=== PATIENT | male | born 1950 | race Caucasian/White ===

== ENCOUNTER 2021-02-21 13:23 | Inpatient (IN) ==
[2021-02-21 14:33] LABS: Basophils # (auto) 0.02 K/uL (0-0.2); Basophils % (auto) 0.3 %; Eosinophils # (auto) 0.16 K/uL (0-0.5); Eosinophils % (auto) 2.4 %; Hematocrit (blood only) 40.3 % (42-52); Hemoglobin 13.9 g/dL (14.0-18.0); Immature Granulocytes # (auto) 0.02 K/uL (0.00-0.02); Immature Granulocytes % (auto) 0.3 %; Lymphocytes # (auto) 1.51 K/uL (1.2-3.4); Lymphocytes % (auto) 22.6 %; Mean Corpuscular Hemoglobin 32.3 pg (25-34); Mean Corpuscular Hgb Conc 34.5 g/dL (32-36); Mean Corpuscular Volume 93.7 fL (80-100); Mean Platelet Volume 8.9 fL (7.4-10.4); Monocytes # (auto) 0.52 K/uL (0.11-0.59); Monocytes % (auto) 7.8 %; Neutrophils # (auto) 4.45 K/uL (1.4-6.5); Neutrophils % (auto) 66.6 %; Platelet Count 280 K/uL (130-400); RDW Coefficient of Variation 12.7 % (11.5-14.5); RDW Standard Deviation 43.7 fL (36.4-46.3); White Blood Count 6.68 K/uL (4.8-10.8)
[2021-02-21 14:50] LABS: Albumin Level 3.8 gm/dl (3.4-5.0); BUN Creatinine Ratio 22.1 (10-20); Calcium 9.9 mg/dl (8.5-10.1); Est GFR (African American) 97.4; Est GFR (Non-African American) 84.1; Potassium 4.9 mmol/L (3.5-5.1)
[2021-02-21 15:01] LABS: Bilirubin,Total 0.5 mg/dl (0.2-1); Globulin 3.8 gm/dl (2.5-4.0); Thyroid Stimulating Hormone 0.887 uIu/ml (0.300-4.500); Total Protein 7.6 gm/dl (6.4-8.2)
[2021-02-21 15:02] LABS: Acetaminophen < 2 ug/ml (10-30); Salicylate < 1.7 mg/dl (2.8-20)
[2021-02-21 15:58] LABS: Appearance Urine Clear (Clear); Bilirubin Urine Negative (Negative); Blood Urine Negative (Negative); Color Urine Yellow; Glucose Urine UA Negative (Negative); Ketones Urine Negative (Negative); Leukocyte Esterase Urine Negative (Negative); Nitrite Urine Negative (Negative); Protein Urine Negative (Negative); Specific Gravity Urine 1.019 (1.000-1.030); Urobilinogen Urine Negative (Negative); pH Urine 6.5 (4.5-7.5)
[2021-02-21 16:27] LABS: Amphetamines+Metham, Urine Neg (Neg); Barbiturates, Urine Neg (Neg); Benzodiazepine, Urine Neg (Neg); Cocaine, Urine Neg (Neg); MDMA (Ecstacy), Urine Neg (Neg); Methadone, Urine Neg (Neg); Opiate, Urine Neg (Neg); Phencyclidine, Urine Neg (Neg)
--- NOTE | 2021-02-21 19:15 | Emergency Department Note ---
History of Present Illness General Chief complaint: Mental Health Evaluation Stated complaint: CANT SLEEP,SHAKING,CRYING Time Seen by Provider: 02/21/21 14:06 History of Present Illness Provider complaint: Mental health evaluation Onset (ago): month(s) 2 Maximum Pain Intensity: 0 70-year-old male presents emergency department for mental health evaluation. Patient states over the last 2 months since his shoulder surgery he has been feeling increasingly depressed. He states he has been crying a lot and has had decreased appetite. Patient states he has been trying to work with his outpatient psychiatrist to help his symptoms and they have recently made changes to his medications and dosages including changing the dose of his Paxil and adding bupropion and Zoloft. He states no matter what he still feels anxious and depressed. Patient denies suicidal or homicidal ideation. Patient does report that he is so anxious he cannot stop shaking. Patient denies any alcohol use. No drug use. Home Medications Medication Instructions Recorded Confirmed Type Foltanx RF 1 tab PO DAILY 02/10/21 02/21/21 History ascorbic acid (vitamin C) [Vitamin 1,000 mg PO DAILY 02/10/21 02/21/21 History C] aspirin [Aspirin Low-Strength] 81 mg PO DAILY 02/10/21 02/21/21 History atorvastatin 20 mg PO DAILY 02/10/21 02/21/21 History dicyclomine [Bentyl] 20 mg PO TID PRN 02/10/21 02/21/21 History lamotrigine [Lamictal] 150 mg PO DAILY 02/10/21 02/21/21 History lisinopril 5 mg PO DAILY 02/10/21 02/21/21 History lithium carbonate 600 mg PO DAILY 02/10/21 02/21/21 History lorazepam [Ativan] 0.5 mg PO Q12H PRN #14 tab 02/10/21 02/21/21 Rx pantoprazole [Protonix] 40 mg PO BID 02/10/21 02/21/21 History paroxetine HCl [Paxil] 20 mg PO DAILY 02/10/21 02/21/21 History quetiapine [Seroquel] 300 mg PO HS 02/10/21 02/21/21 History hydroxyzine HCl 25 mg PO DIRECTED PRN 02/21/21 02/21/21 History Allergies Allergy/AdvReac Type Severity Reaction Status Date / Time Penicillins Allergy Unknown Unknown Verified 02/21/21 17:16 adhesive tape AdvReac Mild Rash Verified 02/21/21 17:16 iodine AdvReac Mild Rash Verified 02/21/21 17:16 Tetracyclines AdvReac Mild Rash Verified 02/21/21 17:16 Past Med/Surg History Medical History Anxiety Depression Surgical History History of shoulder surgery Social History Smoking Status: Never smoker Hx Alcohol Use: Yes Hx Substance Use: Yes Preferred Language: Tajik Feels Safe at Home: Yes Review of Systems A total of 10 systems reviewed and were otherwise negative Physical Exam Vital Signs Vital Signs - 24 hr 02/21/21 13:27 02/21/21 18:27 02/21/21 21:45 Temperature 36.7 C Temperature Source Temporal Artery Scan Pulse Rate 98 H Pulse Rate [Finger] 82 81 Respiratory Rate 18 18 16 Respiratory Effort / Characteristics Non-Labored Non-Labored Spontaneous Respiratory Depth Normal Normal Respiratory Pattern Regular Blood Pressure 154/77 H Blood Pressure [Left Arm] 139/83 127/74 Blood Pressure Mean 102 Blood Pressure Mean [Left Arm] 101 91 Blood Pressure Position [Left Arm] Sitting Pulse Oximetry 96 98 Oxygen Delivery Method Room Air Room Air Sepsis Recent Fever Within 48 Hours No Sepsis New/Unexplained Change in Mental Status No Sepsis Action Taken by Nursing No Action Required Physical Exam GENERAL: He is oriented to person, place, and time. He appears well-developed and well-nourished. He does not appear distressed. Patient has generalized tremor. HENT: Exam performed. - Head: Normocephalic and atraumatic. - Right Ear: External ear normal. No mastoid tenderness. - Left Ear: External ear normal. No mastoid tenderness. - Mouth/Throat: The oropharynx is clear and moist. No trismus in the jaw. No dental abscesses or uvula swelling. No oropharyngeal exudate or tonsillar abscesses. EYES: Conjunctivae and EOM are normal. Pupils are equal, round, and reactive to light. Right eye exhibits no discharge. Left eye exhibits no discharge. No scleral icterus. NECK: Normal range of motion. Neck supple. No JVD present. No spinous process tenderness present. No carotid bruit present. No rigidity. No tracheal deviation and normal range of motion present. No Brudzinski's sign and no Kernig's sign noted. CV: Normal rate, regular rhythm, normal heart sounds and intact distal pulses. There is no peripheral edema. Palpable radial pulses bue. PULM/CHEST: Effort normal and breath sounds normal. No respiratory distress. No stridor. He has no wheezes. He has no rales. - Chest Wall: He exhibits no tenderness. ABD: The abdomen is soft. Bowel sounds are normal. He has no distension. No mass is present. There is no tenderness. There is no rebound, no guarding, no Monreal's sign and no tenderness at McBurney's point. Rovsig negative. MUSC/SKEL: Normal range of motion. There is no peripheral edema, tenderness or deformity. LYMPH: No cervical adenopathy. NEURO: He is alert and oriented to person, place, and time. He has normal strength. No cranial nerve deficit or sensory deficit. Coordination and gait normal. GCS eye subscore is 4. GCS verbal subscore is 5. GCS motor subscore is 6. Cerebellar tests wnl. SKIN: Skin is warm and dry. He is not diaphoretic. PSYCH: Patient appears anxious and is has generalized tremor. No suicidal or homicidal ideation. Course Course 1406: The patient was evaluated in room A6. A complete history and physical exam was performed 1740: Patient medically cleared. Patient placed in observation at this time. 2155: Patient accepted to 3 S. Medical Decision Making Laboratory Data Result diagrams: 02/21/21 14:17 02/21/21 14:17 Lab Results 02/21/21 02/21/21 02/21/21 Range/Units 14:17 14:17 14:17 WBC 6.68 (4.8-10.8) K/uL RBC 4.30 L (4.7-6.1) M/uL Hgb 13.9 L (14.0-18.0) g/dL Hct 40.3 L (42-52) % MCV 93.7 (80-100) fL MCH 32.3 (25-34) pg MCHC 34.5 (32-36) g/dL RDW Std Deviation 43.7 (36.4-46.3) fL RDW Coeff of Krysten 12.7 (11.5-14.5) % Plt Count 280 (130-400) K/uL MPV 8.9 (7.4-10.4) fL Immature Gran % (Auto) 0.3 % Neut % (Auto) 66.6 % Lymph % (Auto) 22.6 % [place] % (Auto) 7.8 % Eos % (Auto) 2.4 % Baso % (Auto) 0.3 % Neut # (Auto) 4.45 (1.4-6.5) K/uL Lymph # (Auto) 1.51 (1.2-3.4) K/uL [place] # (Auto) 0.52 (0.11-0.59) K/uL Eos # (Auto) 0.16 (0-0.5) K/uL Baso # (Auto) 0.02 (0-0.2) K/uL Immature Gran # (Auto) 0.02 (0.00-0.02) K/uL Sodium 141 (136-145) mmol/L Potassium 4.9 (3.5-5.1) mmol/L Chloride 109 H (98-107) mmol/L Carbon Dioxide 30 (21-32) mmol/L Anion Gap 2.0 L (3-11) BUN 20 H (7-18) mg/dl Creatinine 0.93 (0.6-1.4) mg/dl Est Cr Clr Drug Dosing 76.0 ml/min Est GFR ( Amer) 97.4 Est GFR (Non-Af Amer) 84.1 BUN/Creatinine Ratio 22.1 H (10-20) Glucose 105 H (70-99) mg/dl Calcium 9.9 (8.5-10.1) mg/dl Total Bilirubin 0.5 (0.2-1) mg/dl AST 17 (15-37) U/L ALT 53 (12-78) U/L Alkaline Phosphatase 92 (45-117) U/L Total Protein 7.6 (6.4-8.2) gm/dl Albumin 3.8 (3.4-5.0) gm/dl Globulin 3.8 (2.5-4.0) gm/dl Albumin/Globulin Ratio 1.0 (0.9-2) TSH 0.887 (0.300-4.500) uIu/ml Urine Color Urine Appearance (Clear) Urine pH (4.5-7.5) Ur Specific [place] (1.000-1.030) Urine Protein (Negative) Urine Glucose (UA) (Negative) Urine Ketones (Negative) Urine Blood (Negative) Urine Nitrite (Negative) Urine Bilirubin (Negative) Urine Urobilinogen (Negative) Ur Leukocyte Esterase (Negative) Salicylates < 1.7 L (2.8-20) mg/dl Urine Opiates Screen (Neg) Ur Methadone, Qual (Neg) Acetaminophen < 2 L (10-30) ug/ml Urine Barbiturates (Neg) Ur Phencyclidine (PCP) (Neg) U Amphetamin/Meth Scrn (Neg) MDMA (Ecstasy) Screen (Neg) U Benzodiazepines Scrn (Neg) [place] (0.6-1.2) mmol/L Ur Cocaine Metabolite (Neg) U Marijuana (THC) Screen (Neg) Ethyl Alcohol mg/dL (0-3) mg/dl COVID-19 Eval Order SARS-CoV-2, RNA, NAAT (NEGATIVE) 02/21/21 02/21/21 02/21/21 Range/Units 14:17 15:30 15:30 WBC (4.8-10.8) K/uL RBC (4.7-6.1) M/uL Hgb (14.0-18.0) g/dL Hct (42-52) % MCV (80-100) fL MCH (25-34) pg MCHC (32-36) g/dL RDW Std Deviation (36.4-46.3) fL RDW Coeff of Krysten (11.5-14.5) % Plt Count (130-400) K/uL MPV (7.4-10.4) fL Immature Gran % (Auto) % Neut % (Auto) % Lymph % (Auto) % [place] % (Auto) % Eos % (Auto) % Baso % (Auto) % Neut # (Auto) (1.4-6.5) K/uL Lymph # (Auto) (1.2-3.4) K/uL [place] # (Auto) (0.11-0.59) K/uL Eos # (Auto) (0-0.5) K/uL Baso # (Auto) (0-0.2) K/uL Immature Gran # (Auto) (0.00-0.02) K/uL Sodium (136-145) mmol/L Potassium (3.5-5.1) mmol/L Chloride (98-107) mmol/L Carbon Dioxide (21-32) mmol/L Anion Gap (3-11) BUN (7-18) mg/dl Creatinine (0.6-1.4) mg/dl Est Cr Clr Drug Dosing ml/min Est GFR ( Amer) Est GFR (Non-Af Amer) BUN/Creatinine Ratio (10-20) Glucose (70-99) mg/dl Calcium (8.5-10.1) mg/dl Total Bilirubin (0.2-1) mg/dl AST (15-37) U/L ALT (12-78) U/L Alkaline Phosphatase (45-117) U/L Total Protein (6.4-8.2) gm/dl Albumin (3.4-5.0) gm/dl Globulin (2.5-4.0) gm/dl Albumin/Globulin Ratio (0.9-2) TSH (0.300-4.500) uIu/ml Urine Color Yellow Urine Appearance Clear (Clear) Urine pH 6.5 (4.5-7.5) Ur Specific [place] 1.019 (1.000-1.030) Urine Protein Negative (Negative) Urine Glucose (UA) Negative (Negative) Urine Ketones Negative (Negative) Urine Blood Negative (Negative) Urine Nitrite Negative (Negative) Urine Bilirubin Negative (Negative) Urine Urobilinogen Negative (Negative) Ur Leukocyte Esterase Negative (Negative) Salicylates (2.8-20) mg/dl Urine Opiates Screen Neg (Neg) Ur Methadone, Qual Neg (Neg) Acetaminophen (10-30) ug/ml Urine Barbiturates Neg (Neg) Ur Phencyclidine (PCP) Neg (Neg) U Amphetamin/Meth Scrn Neg (Neg) MDMA (Ecstasy) Screen Neg (Neg) U Benzodiazepines Scrn Neg (Neg) [place] (0.6-1.2) mmol/L Ur Cocaine Metabolite Neg (Neg) U Marijuana (THC) Screen Neg (Neg) Ethyl Alcohol mg/dL < 3.0 (0-3) mg/dl COVID-19 Eval Order SARS-CoV-2, RNA, NAAT (NEGATIVE) 04/27/21 04/27/21 04/27/21 Range/Units 17:40 17:40 19:58 WBC (4.8-10.8) K/uL RBC (4.7-6.1) M/uL Hgb (14.0-18.0) g/dL Hct (42-52) % MCV (80-100) fL MCH (25-34) pg MCHC (32-36) g/dL RDW Std Deviation (36.4-46.3) fL RDW Coeff of Krysten (11.5-14.5) % Plt Count (130-400) K/uL MPV (7.4-10.4) fL Immature Gran % (Auto) % Neut % (Auto) % Lymph % (Auto) % [place] % (Auto) % Eos % (Auto) % Baso % (Auto) % Neut # (Auto) (1.4-6.5) K/uL Lymph # (Auto) (1.2-3.4) K/uL [place] # (Auto) (0.11-0.59) K/uL Eos # (Auto) (0-0.5) K/uL Baso # (Auto) (0-0.2) K/uL Immature Gran # (Auto) (0.00-0.02) K/uL Sodium (136-145) mmol/L Potassium (3.5-5.1) mmol/L Chloride (98-107) mmol/L Carbon Dioxide (21-32) mmol/L Anion Gap (3-11) BUN (7-18) mg/dl Creatinine (0.6-1.4) mg/dl Est Cr Clr Drug Dosing ml/min Est GFR ( Amer) Est GFR (Non-Af Amer) BUN/Creatinine Ratio (10-20) Glucose (70-99) mg/dl Calcium (8.5-10.1) mg/dl Total Bilirubin (0.2-1) mg/dl AST (15-37) U/L ALT (12-78) U/L Alkaline Phosphatase (45-117) U/L Total Protein (6.4-8.2) gm/dl Albumin (3.4-5.0) gm/dl Globulin (2.5-4.0) gm/dl Albumin/Globulin Ratio (0.9-2) TSH (0.300-4.500) uIu/ml Urine Color Urine Appearance (Clear) Urine pH (4.5-7.5) Ur Specific [place] (1.000-1.030) Urine Protein (Negative) Urine Glucose (UA) (Negative) Urine Ketones (Negative) Urine Blood (Negative) Urine Nitrite (Negative) Urine Bilirubin (Negative) Urine Urobilinogen (Negative) Ur Leukocyte Esterase (Negative) Salicylates (2.8-20) mg/dl Urine Opiates Screen (Neg) Ur Methadone, Qual (Neg) Acetaminophen (10-30) ug/ml Urine Barbiturates (Neg) Ur Phencyclidine (PCP) (Neg) U Amphetamin/Meth Scrn (Neg) MDMA (Ecstasy) Screen (Neg) U Benzodiazepines Scrn (Neg) [place] 0.6 (0.6-1.2) mmol/L Ur Cocaine Metabolite (Neg) U Marijuana (THC) Screen (Neg) Ethyl Alcohol mg/dL (0-3) mg/dl COVID-19 Eval Order Covid19 [facility] SARS-CoV-2, RNA, NAAT NEGATIVE (NEGATIVE) MDM Narrative Observation note Indication: Psych eval/placement Patient, with anxiety and depression was first seen at 1406 hrs and the observation time began at 1740 hrs and was necessary in order to have psych evaluation completed . Upon re-evaluation, 4 hours and 16 minutes of observation revealed that the patient should be admitted to psych. Disposition date and time February 21, [id number]. Impression & Plan Acute anxiety Discharge Plan Visit Data Chief Complaint: Mental Health Evaluation Stated Complaint: CANT SLEEP,SHAKING,CRYING ED Provider: Arash Silvestre Discharge Problem: Acute anxiety Patient Disposition: Admitted As Inpatient Forms Stand Alone Forms: [facility], Suicide Prevention Resources Prescriptions Prescriptions: No Action lamotrigine [Lamictal] 150 mg Tablet 150 mg PO DAILY RF: 0 ascorbic acid (vitamin C) [Vitamin C] 1,000 mg Tablet 1,000 mg PO DAILY RF: 0 atorvastatin 20 mg Tablet 20 mg PO DAILY RF: 0 quetiapine [Seroquel] 300 mg Tablet 300 mg PO HS RF: 0 dicyclomine [Bentyl] 20 mg Tablet 20 mg PO TID PRN (Reason: ABD PAIN) RF: 0 lithium carbonate 600 mg Capsule 600 mg PO DAILY RF: 0 paroxetine HCl [Paxil] 20 mg Tablet 20 mg PO DAILY RF: 0 pantoprazole [Protonix] 40 mg Tablet,Delayed Release (Dr/Ec) 40 mg PO BID RF: 0 lisinopril 5 mg Tablet 5 mg PO DAILY RF: 0 Foltanx RF 1 tab PO DAILY RF: 0 aspirin [Aspirin Low-Strength] 81 mg Tablet,Chewable 81 mg PO DAILY RF: 0 lorazepam [Ativan] 0.5 mg tablet 0.5 mg PO Q12H PRN (Reason: anxiety) Qty: 14 RF: 0 hydroxyzine HCl 25 mg tablet 25 mg PO DIRECTED PRN (Reason: Anxiety) RF: 0 Referrals Referrals: Jeremy Hickman DO [Primary Care Provider] -
[2021-02-21] MEDS ORDERED: SODIUM CHLORIDE 0.65% NA SOLN 45 ML (OCEAN) PRN (21:45)
[2021-02-21] MEDS ORDERED: hydrOXYzine HCl 25 MG TAB PO PRN ×2 (21:45)
[2021-02-21] MEDS ORDERED: MAGNESIUM HYDROXIDE SUSP 30 ML UDC PO PRN (21:45)
[2021-02-21] MEDS ORDERED: BISMUTH SUBSALICYLATE LIQD 236 ML PO PRN (21:45)
[2021-02-21] MEDS ORDERED: ALUMINUM/MAGNESIUM SUSP 30 ML UDC PO PRN (21:45)
[2021-02-21] MEDS ORDERED: ACETAMINOPHEN 325 MG TAB PO PRN (21:45)
[2021-02-21] MEDS ORDERED: QUEtiapine FUMARATE 25 MG TABLET PO ONE (22:21)
[2021-02-21] MEDS ORDERED: LORazepam 1 MG TAB PO STA (22:22)
--- NOTE | 2021-02-22 08:14 | History & Physical ---
Date of Service February 22, 2021 Impression / Recommendations Impression 70-year-old male with a history of bipolar disorder who presents with worsening depression and anxiety and poor response to multiple medications. He was just started on sertraline, which we will continue to titrate. He has been unable to eat or sleep, and lost 13 pounds in the last few weeks. Inpatient treatment is medically necessary due to the severity of symptoms and inability to care for himself outside of the hospital. (1) Anxiety: 02/22 -patient is extremely anxious, shaky and distraught. He reports poor response to hydroxyzine, but has been taking Ativan with some benefit. Will offer 1 mg 3 times daily as needed here. Also ordered propanolol 10 mg twice daily as needed for anxiety/tremor. -Continue to titrate sertraline, increasing to 100 mg daily today. -Encourage group attendance and participation, work on healthy coping skills and discharge safety plan. -Coordinate with outpatient psychiatrist, Dr. Mendoza at [facility], and refer for outpatient psychotherapy. -Family meeting. (2) Bipolar 1 disorder: 02/22 -continue lithium, lamotrigine, and quetiapine. Discussed options of increasing either lithium or quetiapine, as he has been on higher doses of both in the past and this may benefit mood, sleep, and anxiety. We will reserve this option in case he is not improving with titration of the SSRI as above. Risk Factors Assessment Male: Yes : Yes Do You Have Access To A Gun?: Yes (locked up) Health Problems: Yes Mental Health Diagnoses: Yes Substance Use Disorders: No Previous Attempt: No Previous Psychiatric Hospitalization: Yes Hopelessness: Yes Smoker: No Protective Factors Assessment Mormon Beliefs: No : No Responsible for Young Children: No Employed: No Stable Relationships: Yes Supportive Family: Yes Psychiatric History Identifying Data EDMUND DAUGHERTY is a 70-year-old M who currently lives in [place], has a history of bipolar disorder versus depression and anxiety, and was admitted on 02/21/21 21:45 on a 201 voluntary commitment for severe depression with inability to care for himself. Chief Complaint "Her pills just, tried something, didn't work". History of Present Illness Patient was sent into the ER by his outpatient psychiatrist, Dr. Mendoza at [facility], for severe depression and anxiety and inability to care for himself. He previously been in treatment with Dr. Prado for several decades and has been diagnosed with bipolar disorder. Records from his psychiatry visit yesterday indicate he presented with his [id number], had been crying most of the day, was hopeless, and did not think he would ever get better. He had not been sleeping, had no energy, was isolating, and not eating, losing 13 pounds in 3 weeks. He endorsed anxiety, and was very shaky. He had been started on sertraline and just increased the dose to 50 mg yesterday. He did not feel able to care for himself, stating he could not wait for the medication to work and was "not going to make it." His [id number] agreed to take him to the hospital for inpatient treatment. He had been seen in the ER 02/10/2021 for anxiety and was given a prescription for lorazepam 0.5 mg as needed, which he took a couple of times with good effect. At that time his paroxetine was being titrated, but after that visit he was switched to sertraline. Yesterday in the ER, EKG was normal sinus rhythm with QTC 414, labs notable for low RBC, hemoglobin, and hematocrit; BUN of 20, chloride 109, glucose 105, normal LFTs and TSH 0.887; UA and UDS negative. He was admitted voluntarily and continued on his home medications including hydroxyzine 25-50 mg 3 times daily as needed anxiety, sertraline 50 mg daily, lamotrigine 150 mg daily at noon, lithium 600 mg at noon, and quetiapine 300 mg at bedtime. On my assessment today, he states mood and anxiety have been worsening since a shoulder injury last December after he fell off a backhoe, and wasn't able to have surgery due to pandemic until Oct., with ongoing pain and need for PT. He became more anxious last month and has had with several medications trials (first bupropion which made him more anxious, then paroxetine which also made him feel worse, and started sertraline about 4 days ago). He has been on stable doses of Seroquel, lamotrigine and lithium for years. He has felt so anxious he could not eat, was "crying 20/05," and could not function despite good family support. He denies wanting to hurt himself or anyone else, "I love my family and I love my life, I just want to get better." Sleep is "off and on," some nights can't sleep but others sleeps well, thinks Seroquel helps. Has been on up to 400mg of Seroquel in the past, but the dose was reduced as he "felt like a zombie." He thinks his last manic episode was in 2006 when his from cancer, and he was hospitalized at [facility], had a very bad experience. He repeatedly asked if we would get him better, and if he would be better by the time he left. He is particularly concerned about the crying and "shakes." He would like a new psychiatrist, as he feels Dr. Prado knew just what medications to give him and he is frustrated that his recent medication changes haven't been working, and is also interested in therapy. Past Psychiatric History Current Psychiatric Diagnosis: Bipolar I depressed (per [facility] records), vs MDD Outpatient Services: Psychiatrist Dr. Mendoza at [facility], previously saw Dr. Prado for about 30 years He has never had therapy but is interested in starting. Previous Psych Admissions: [facility] about 15 years ago Do You Have Access To A Gun?: Yes (locked up) History of Previous Suicide Attempt: No Past Medication Trials: Paroxetine Wellbutirn - increased anxiety Depakote - did not work hydroxyzine - ineffective for anxiety Allergies Allergy/AdvReac Type Severity Reaction Status Date / Time Penicillins Allergy Unknown Unknown Verified 02/21/21 17:16 adhesive tape AdvReac Mild Rash Verified 02/21/21 17:16 iodine AdvReac Mild Rash Verified 02/21/21 17:16 Tetracyclines AdvReac Mild Rash Verified 02/21/21 17:16 Home Medications Medication Instructions Recorded Confirmed Type Foltanx RF 1 tab PO DAILY 02/10/21 02/21/21 History ascorbic acid (vitamin C) [Vitamin 1,000 mg PO DAILY 02/10/21 02/21/21 History C] aspirin [Aspirin Low-Strength] 81 mg PO DAILY 02/10/21 02/21/21 History atorvastatin 20 mg PO DAILY 02/10/21 02/21/21 History dicyclomine [Bentyl] 20 mg PO TID PRN 02/10/21 02/21/21 History lamotrigine [Lamictal] 150 mg PO DAILY 02/10/21 02/21/21 History lisinopril 5 mg PO DAILY 02/10/21 02/21/21 History lithium carbonate 600 mg PO DAILY 02/10/21 02/21/21 History lorazepam [Ativan] 0.5 mg PO Q12H PRN #14 tab 02/10/21 02/21/21 Rx pantoprazole [Protonix] 40 mg PO BID 02/10/21 02/21/21 History quetiapine [Seroquel] 300 mg PO HS 02/10/21 02/21/21 History hydroxyzine HCl 25 mg PO BID PRN 02/21/21 02/22/21 History sertraline [Zoloft] 50 mg PO DAILY 02/22/21 02/22/21 History Family History Family History of: Doesn't Know Alcohol History Hx of Alcohol Use Over the Past 12 Months: No AUDIT Total Score: 0 Smoking Use tobacco type: cigarettes Smoking Status: Never smoker Substance History Hx of Prescription Med Misuse Over the Past 12 Months: No Hx of Over the Counter Med Misuse Over the Past 12 Months: No Hx of Inhalent Misuse Over the Past 12 Months: No Hx of Organic Substance Use Over the Past 12 Months: No Hx of Illegal Substances/Street Drug Use Over Past 12 Months: No Problems as a Result of Past Substance Use: None Identified Personal History Living Arrangements: Home Living Arrangements Comments: alone, but multiple family members live nearby. Has a girlfriend in [place] whom he sees on weekends Childhood: Grew up in [facility]. Has 1 older brother, other brother at age 67 of heart disease Highest Grade Completed: High School Graduate Employment Status: Self-Employed (has [employer] business, has not worked since last spring) Marital Status: Number Of Children: 1 daughter, 1 grandson Beliefs That Will Affect Care: None and Mormon Current Legal Problems: No Hx Legal Problems: No Hx Traumatic Life Events: No Patient History Medical History (Updated 02/22/21 @ 10:38 by Tanisha Mai MD) Anxiety Bipolar 1 disorder Surgical History History of shoulder surgery Social History Smoking Status: Never smoker Hx Alcohol Use: Yes Hx Substance Use: Yes Preferred Language: Montserratian Communication Ability: Effective Beliefs That Will Affect Care: None and Mormon Feels Safe at Home: Yes Review of Systems Review of Systems: All systems reviewed & are unremarkable except as noted in HPI & below UE shaking started about 3 weeks ago with high anxiety Physical Exam Psychiatric: Orientation: alert and cooperative Apperance: appropriately dressed, appropriately groomed and appeared stated age b/l UE tattoos, well groomed Eye Contact: + fair eye contact Motor Behavior: steady gait and station and no abnormal motor movements Speech: normal rate/rhythm/volume of speech Affect: + depressed affect, + anxious affect and mood congruent with affect Mood: + depressed mood and + anxious mood Thought Process: goal directed thought process Thought Content: reality based without delusions Suicidal Thoughts: denies suicidal thoughts Homicidal Thoughts: denies homicidal thoughts Hallucinations: no auditory hallucinations and no visual hallucinations Cognition: recent memory grossly intact, attention grossly intact and language grossly intact Insight: + fair insight Judgement: + fair judgement Vital Signs (Past 24 Hours): Last Vital Signs Temp 36.6 C 02/22/21 06:53 Pulse 80 02/22/21 06:54 Resp 16 02/22/21 06:53 BP 116/77 02/22/21 06:54 Pulse Ox 98 02/21/21 22:36 Exam Statement: A physical exam was performed in the ER prior to admission to the unit by Dr. Antoine. I accept that physical as correct/medical clearance for the inpatient physical exam. Results & Data ([facility]) Laboratory Results Laboratory Results - last 24 hr 02/21/21 02/21/21 02/21/21 14:17 14:17 14:17 WBC 6.68 RBC 4.30 L Hgb 13.9 L Hct 40.3 L MCV 93.7 MCH 32.3 MCHC 34.5 RDW Std Deviation 43.7 RDW Coeff of Krysten 12.7 Plt Count 280 MPV 8.9 Immature Gran % (Auto) 0.3 Neut % (Auto) 66.6 Lymph % (Auto) 22.6 [place] % (Auto) 7.8 Eos % (Auto) 2.4 Baso % (Auto) 0.3 Neut # (Auto) 4.45 Lymph # (Auto) 1.51 [place] # (Auto) 0.52 Eos # (Auto) 0.16 Baso # (Auto) 0.02 Immature Gran # (Auto) 0.02 Sodium 141 Potassium 4.9 Chloride 109 H Carbon Dioxide 30 Anion Gap 2.0 L BUN 20 H Creatinine 0.93 Est Cr Clr Drug Dosing 76.0 Est GFR ( Amer) 97.4 Est GFR (Non-Af Amer) 84.1 BUN/Creatinine Ratio 22.1 H Glucose 105 H Calcium 9.9 Total Bilirubin 0.5 AST 17 ALT 53 Alkaline Phosphatase 92 Total Protein 7.6 Albumin 3.8 Globulin 3.8 Albumin/Globulin Ratio 1.0 TSH 0.887 Urine Color Urine Appearance Urine pH Ur Specific [place] Urine Protein Urine Glucose (UA) Urine Ketones Urine Blood Urine Nitrite Urine Bilirubin Urine Urobilinogen Ur Leukocyte Esterase Salicylates < 1.7 L Urine Opiates Screen Ur Methadone, Qual Acetaminophen < 2 L Urine Barbiturates Ur Phencyclidine (PCP) U Amphetamin/Meth Scrn MDMA (Ecstasy) Screen U Benzodiazepines Scrn [place] Ur Cocaine Metabolite U Marijuana (THC) Screen Ethyl Alcohol mg/dL COVID-19 Eval Order SARS-CoV-2, RNA, NAAT 02/21/21 02/21/21 02/21/21 14:17 15:30 15:30 WBC RBC Hgb Hct MCV MCH MCHC RDW Std Deviation RDW Coeff of Krysten Plt Count MPV Immature Gran % (Auto) Neut % (Auto) Lymph % (Auto) [place] % (Auto) Eos % (Auto) Baso % (Auto) Neut # (Auto) Lymph # (Auto) [place] # (Auto) Eos # (Auto) Baso # (Auto) Immature Gran # (Auto) Sodium Potassium Chloride Carbon Dioxide Anion Gap BUN Creatinine Est Cr Clr Drug Dosing Est GFR ( Amer) Est GFR (Non-Af Amer) BUN/Creatinine Ratio Glucose Calcium Total Bilirubin AST ALT Alkaline Phosphatase Total Protein Albumin Globulin Albumin/Globulin Ratio TSH Urine Color Yellow Urine Appearance Clear Urine pH 6.5 Ur Specific [place] 1.019 Urine Protein Negative Urine Glucose (UA) Negative Urine Ketones Negative Urine Blood Negative Urine Nitrite Negative Urine Bilirubin Negative Urine Urobilinogen Negative Ur Leukocyte Esterase Negative Salicylates Urine Opiates Screen Neg Ur Methadone, Qual Neg Acetaminophen Urine Barbiturates Neg Ur Phencyclidine (PCP) Neg U Amphetamin/Meth Scrn Neg MDMA (Ecstasy) Screen Neg U Benzodiazepines Scrn Neg [place] Ur Cocaine Metabolite Neg U Marijuana (THC) Screen Neg Ethyl Alcohol mg/dL < 3.0 COVID-19 Eval Order SARS-CoV-2, RNA, NAAT 02/21/21 02/21/21 02/21/21 17:40 17:40 19:58 WBC RBC Hgb Hct MCV MCH MCHC RDW Std Deviation RDW Coeff of Krysten Plt Count MPV Immature Gran % (Auto) Neut % (Auto) Lymph % (Auto) [place] % (Auto) Eos % (Auto) Baso % (Auto) Neut # (Auto) Lymph # (Auto) [place] # (Auto) Eos # (Auto) Baso # (Auto) Immature Gran # (Auto) Sodium Potassium Chloride Carbon Dioxide Anion Gap BUN Creatinine Est Cr Clr Drug Dosing Est GFR ( Amer) Est GFR (Non-Af Amer) BUN/Creatinine Ratio Glucose Calcium Total Bilirubin AST ALT Alkaline Phosphatase Total Protein Albumin Globulin Albumin/Globulin Ratio TSH Urine Color Urine Appearance Urine pH Ur Specific [place] Urine Protein Urine Glucose (UA) Urine Ketones Urine Blood Urine Nitrite Urine Bilirubin Urine Urobilinogen Ur Leukocyte Esterase Salicylates Urine Opiates Screen Ur Methadone, Qual Acetaminophen Urine Barbiturates Ur Phencyclidine (PCP) U Amphetamin/Meth Scrn MDMA (Ecstasy) Screen U Benzodiazepines Scrn [place] 0.6 Ur Cocaine Metabolite U Marijuana (THC) Screen Ethyl Alcohol mg/dL COVID-19 Eval [facility] SARS-CoV-2, RNA, NAAT NEGATIVE Current Inpatient Medications Current Inpatient Medications: Current Inpatient Medications Acetaminophen (Acetaminophen 325 Mg Tab) 650 mg PO Q4H PRN PRN Reason: Headache or Minor Fever Stop: 03/23/21 21:44 Al Hydrox/Mg Hydrox/Simethicone (Aluminum/Magnesium Susp 30 Ml Udc) 30 ml PO Q4H PRN PRN Reason: GI Upset Stop: 03/23/21 21:44 Ascorbic Acid (Ascorbic Acid 500 Mg Tab) 1,000 mg PO DAILY@1200 RICHARD Stop: 03/24/21 11:59 Aspirin (Aspirin 81 Mg Ectab) 81 mg PO DAILY@1200 RICHARD Stop: 03/24/21 11:59 Atorvastatin Calcium (Atorvastatin 20 Mg Tab) 20 mg PO DAILY@1200 [facility] Stop: 03/24/21 11:59 Bismuth Subsalicylate (Bismuth Subsalicylate Liqd 236 Ml) 15 ml PO PRN PRN PRN Reason: Loose Stool Stop: 03/23/21 21:44 Hydroxyzine HCl (Hydroxyzine Hcl 25 Mg Tab) 50 mg PO HSZ PRN PRN Reason: Insomnia Stop: 03/23/21 21:44 Hydroxyzine HCl (Hydroxyzine Hcl 25 Mg Tab) 25 mg PO Q4H PRN PRN Reason: Anxiety Stop: 03/23/21 21:44 Lamotrigine (Lamotrigine 25 Mg Tab) 150 mg PO DAILY@1200 [facility] Stop: 03/24/21 11:59 Lisinopril (Lisinopril 5 Mg Tab) 5 mg PO DAILY@1200 [facility] Stop: 03/24/21 11:59 [place] Carbonate ([place] Carbonate 300 Mg Tab) 600 mg PO DAILY@1200 [facility] Stop: 03/24/21 11:59 Magnesium Hydroxide (Magnesium Hydroxide Susp 30 Ml Udc) 30 ml PO DAILY PRN PRN Reason: Constipation Stop: 03/23/21 21:44 Sodium Chloride (Sodium Chloride 0.65% Na Soln 45 Ml ([place])) 1 - 2 sprays NA PRN PRN PRN Reason: Nasal Dryness/Congestion Stop: 03/23/21 21:44
[2021-02-22] MEDS ORDERED: PROPRANOLOL HCL 10 MG TAB PO PRN (10:42)
[2021-02-22] MEDS: SERTRALINE HCL 100 MG TABLET PO SCH (10:59)
[2021-02-22] MEDS: LORazepam 1 MG TAB PO PRN (11:20)
[2021-02-22] MEDS: ASPIRIN 81 MG ECTAB PO SCH (13:09)
[2021-02-22] MEDS: LITHIUM CARBONATE 300 MG TAB PO SCH (13:09)
[2021-02-22] MEDS: lisinopril 5 MG TAB PO SCH (13:09)
[2021-02-22] MEDS: ASCORBIC ACID 500 MG TAB PO SCH (13:10)
[2021-02-22] MEDS: lamoTRIgine 25 MG TAB PO SCH (13:10)
[2021-02-22] MEDS: ATORVASTATIN 20 MG TAB PO SCH (13:10)
--- NOTE | 2021-02-22 16:09 | Electrocardiogram Report ---
Test Reason : Blood Pressure : / mmHG Vent. Rate : 070 BPM Atrial Rate : 070 BPM P-R Int : 194 ms QRS Dur : 114 ms QT Int : 384 ms P-R-T Axes : 069 -54 037 degrees QTc Int : 414 ms Normal sinus rhythm Left atrial enlargement Incomplete right bundle branch block Left anterior fascicular block Abnormal ECG No previous ECGs available Confirmed by Bear Frank ([id number]) on 02/22/2021 4:08:54 PM Referred By: REFERRED SELF Confirmed By:Bear Frank
[2021-02-22] MEDS: QUEtiapine FUMARATE 300 MG TABLET PO SCH (21:22)
[2021-02-23] MEDS: SERTRALINE HCL 100 MG TABLET PO SCH (08:21)
[2021-02-23] MEDS: LORazepam 1 MG TAB PO PRN (08:21)
--- NOTE | 2021-02-23 08:50 | Psychiatric Progress Note ---
Date of Service February 23, 2021 Impression / Recommendations Impression 70-year-old male with a history of bipolar disorder who presents with worsening depression and anxiety and poor response to multiple medications. He was just started on sertraline, which we will continue to titrate. He has been unable to eat or sleep, and lost 13 pounds in the last few weeks. Inpatient treatment is medically necessary due to the severity of symptoms and inability to care for himself outside of the hospital. (1) Anxiety: 02/22 -patient is extremely anxious, shaky and distraught. He reports poor response to hydroxyzine, but has been taking Ativan with some benefit. Will offer 1 mg 3 times daily as needed here. Also ordered propanolol 10 mg twice daily as needed for anxiety/tremor. -Continue to titrate sertraline, increasing to 100 mg daily today. -Encourage group attendance and participation, work on healthy coping skills and discharge safety plan. -Coordinate with outpatient psychiatrist, Dr. Mendoza at [facility], and refer for outpatient psychotherapy. -Family meeting. 02/23 - Continue medication changes from yesterday. Pt continues to demonstrate episodes of elevated anxiety, responding to lorazepam. Pt was encouraged to consider trial of propranolol, with option to have the medication scheduled if it is helpful for anxiety. - Continue to encourage group participation as appropriate - staff processed inappropriate boundaries between patient and several female peers, he verbalized understanding and motivation toward changed behavior. Pt was informed that continued inappropriate behavior could lead to decision for administrative discharge, and he verbalized understanding. - Will need to schedule family meeting to involve brother and [id number] - Refer for outpatient therapy (2) Bipolar 1 disorder: 02/22 -continue lithium, lamotrigine, and quetiapine. Discussed options of increasing either lithium or quetiapine, as he has been on higher doses of both in the past and this may benefit mood, sleep, and anxiety. We will reserve this option in case he is not improving with titration of the SSRI as above. 02/23 - Continue as above Risk Factors Assessment Male: Yes : Yes Do You Have Access To A Gun?: Yes (locked up) Health Problems: Yes Mental Health Diagnoses: Yes Substance Use Disorders: No Previous Attempt: No Previous Psychiatric Hospitalization: Yes Hopelessness: Yes Smoker: No Protective Factors Assessment Holiness Beliefs: No : No Responsible for Young Children: No Employed: No Stable Relationships: Yes Supportive Family: Yes Interval History Identifying Information EDMUND DAUGHERTY is a 70-year-old M who currently lives in [place], has a history of bipolar disorder versus depression and anxiety, and was admitted on 02/21/21 21:45 on a 201 voluntary commitment for severe depression with inability to care for himself. Chief Complaint "I am feeling a little bit better. That medication this morning helped." Review of Systems Notes Constitutional: denied Cardiovascular: denied Respiratory: denied Gastrointestinal: denied Neurological: denied Psychiatric: denies symptoms other than stated above Total of at least 10 systems reviewed, pertinent positives as above and in HPI. Sleep Information Total Hours of Sleep: 6.5 Sleep Comments: pt on q-15 minute checks Meal Information Percent Meal Consumed - Breakfast: 75 Percent Meal Consumed - Lunch: 90 Percent Meal Consumed - Dinner: 100 Subjective Subjective Patient was seen & assessed and interval progress reviewed with nursing and social work. Staff report the patient has been participating in group programming. He has been compliant with medication changes and cooperative with efforts to increase outpatient supports. Information was received from several female peers that patient has made statements or demonstrated inappropriate behavior that is contributing to feelings of discomfort. The inappropriate boundaries were processed earlier this morning with staff, and conversation today was held with this provider and vice president sales and marketing. Pt does admit that "I am feeling a little bit better. That medication this morning helped." Pt has been receiving prn doses of lorazepam, but was encouraged to consider use of newly ordered propranolol to target anxiety. Pt admitted he was agreeable with medication adjustments and does admit that his mood is gradually improving. He admits the mornings tend to be more difficult for him, and that he has been less tearful on the unit when compared to home. He does acknowledge that his inability to care for himself was a significant concern and he is hoping to continue to work on coping strategies and medication changes to improve his mood and energy level. Pt is open to a family meeting as well as outpatient referrals for therapy. He denies SI, but there is ongoing concern about his ability to tolerate community re-entry. Physical Exam Psychiatric Orientation: alert, oriented x 3 and cooperative Apperance: appropriately dressed, appropriately groomed and appeared stated age Eye Contact: good eye contact Motor Behavior: steady gait and station and + tremor (fine tremor observed in hands bilaterally) Speech: normal rate/rhythm/volume of speech Affect: + blunted affect (subdued, but still with appropriate smiling) Mood: + depressed mood (but admits to some gradual improvement) and + anxious mood Thought Process: goal directed thought process Thought Content: reality based without delusions; no hopelessness and no worthlessness Suicidal Thoughts: denies suicidal thoughts and denies suicidal intent Homicidal Thoughts: denies homicidal thoughts Hallucinations: no auditory hallucinations and no visual hallucinations Cognition: attention grossly intact and language grossly intact Estimated Intelligence: consistent with education level Insight: + fair insight Judgement: + fair judgement Vital Signs (Past 24 Hours) Last Vital Signs Temp 36.6 C 02/23/21 06:55 Pulse 71 02/23/21 06:55 Resp 16 02/23/21 06:55 BP 99/61 L 02/23/21 06:55 Pulse Ox 98 02/21/21 22:36 Results & Data ([facility]) Current Inpatient Medications Current Inpatient Medications: Current Inpatient Medications Acetaminophen (Acetaminophen 325 Mg Tab) 650 mg PO Q4H PRN PRN Reason: Headache or Minor Fever Stop: 03/23/21 21:44 Al Hydrox/Mg Hydrox/Simethicone (Aluminum/Magnesium Susp 30 Ml Udc) 30 ml PO Q4 H PRN PRN Reason: GI Upset Stop: 03/23/21 21:44 Ascorbic Acid (Ascorbic Acid 500 Mg Tab) 1,000 mg PO DAILY@1200 RICHARD Stop: 03/24/21 11:59 Last Admin: 02/22/21 13:10 Dose: 1,000 mg Documented by: Aspirin (Aspirin 81 Mg Ectab) 81 mg PO DAILY@1200 RICHARD Stop: 03/24/21 11:59 Last Admin: 02/22/21 13:09 Dose: 81 mg Documented by: Atorvastatin Calcium (Atorvastatin 20 Mg Tab) 20 mg PO DAILY@1200 RICHARD Stop: 03/24/21 11:59 Last Admin: 02/22/21 13:10 Dose: 20 mg Documented by: Bismuth Subsalicylate (Bismuth Subsalicylate Liqd 236 Ml) 15 ml PO PRN PRN PRN Reason: Loose Stool Stop: 03/23/21 21:44 Hydroxyzine HCl (Hydroxyzine Hcl 25 Mg Tab) 50 mg PO HSZ PRN PRN Reason: Insomnia Stop: 03/23/21 21:44 Hydroxyzine HCl (Hydroxyzine Hcl 25 Mg Tab) 25 mg PO Q4H PRN PRN Reason: Anxiety Stop: 03/23/21 21:44 Last Admin: 02/22/21 08:44 Dose: 25 mg Documented by: Lamotrigine (Lamotrigine 25 Mg Tab) 150 mg PO DAILY@1200 [facility] Stop: 03/24/21 11:59 Last Admin: 02/22/21 13:10 Dose: 150 mg Documented by: Lisinopril (Lisinopril 5 Mg Tab) 5 mg PO DAILY@1200 [facility] Stop: 03/24/21 11:59 Last Admin: 02/22/21 13:09 Dose: 5 mg Documented by: [place] Carbonate ([place] Carbonate 300 Mg Tab) 600 mg PO DAILY@1200 [facility] Stop: 03/24/21 11:59 Last Admin: 02/22/21 13:09 Dose: 600 mg Documented by: Lorazepam (Lorazepam 1 Mg Tab) 1 mg PO TID PRN PRN Reason: Anxiety Stop: 03/24/21 08:48 Last Admin: 02/23/21 08:21 Dose: 1 mg Documented by: Magnesium Hydroxide (Magnesium Hydroxide Susp 30 Ml Udc) 30 ml PO DAILY PRN PRN Reason: Constipation Stop: 03/23/21 21:44 Propranolol HCl (Propranolol Hcl 10 Mg Tab) 10 mg PO BID PRN PRN Reason: tremor Stop: 03/24/21 10:44 Quetiapine Fumarate (Quetiapine Fumarate 300 Mg Tablet) 300 mg PO HS [facility] Stop: 03/24/21 21:59 Last Admin: 02/22/21 21:22 Dose: 300 mg Documented by: Sertraline HCl (Sertraline Hcl 100 Mg Tablet) 100 mg PO QAM [facility] Stop: 03/24/21 10:29 Last Admin: 02/23/21 08:21 Dose: 100 mg Documented by: Sodium Chloride (Sodium Chloride 0.65% Na Soln 45 Ml ([place])) 1 - 2 sprays NA PRN PRN PRN Reason: Nasal Dryness/Congestion Stop: 03/23/21 21:44 Post Discharge Appointments Primary Care Physician Name Of Family Doctor: Jeremy Hickman
[2021-02-23] MEDS: ASCORBIC ACID 500 MG TAB PO SCH (11:51)
[2021-02-23] MEDS: ASPIRIN 81 MG ECTAB PO SCH (11:55)
[2021-02-23] MEDS: ATORVASTATIN 20 MG TAB PO SCH (11:55)
[2021-02-23] MEDS: LITHIUM CARBONATE 300 MG TAB PO SCH (11:56)
[2021-02-23] MEDS: lamoTRIgine 25 MG TAB PO SCH (11:57)
[2021-02-23] MEDS: lisinopril 5 MG TAB PO SCH (12:00)
[2021-02-23] MEDS: QUEtiapine FUMARATE 300 MG TABLET PO SCH (20:58)
[2021-02-24] MEDS ORDERED: NON-FORMULARY PATIENT'S OWN MED SCH (09:00)
[2021-02-24] MEDS: SERTRALINE HCL 100 MG TABLET PO SCH (10:19)
[2021-02-24] MEDS: LORazepam 1 MG TAB PO PRN (10:24)
[2021-02-24] MEDS: lamoTRIgine 25 MG TAB PO SCH (12:30)
[2021-02-24] MEDS: ASPIRIN 81 MG ECTAB PO SCH (12:31)
[2021-02-24] MEDS: ASCORBIC ACID 500 MG TAB PO SCH (12:31)
[2021-02-24] MEDS: lisinopril 5 MG TAB PO SCH (12:31)
[2021-02-24] MEDS: LITHIUM CARBONATE 300 MG TAB PO SCH (12:31)
[2021-02-24] MEDS: ATORVASTATIN 20 MG TAB PO SCH (12:31)
--- NOTE | 2021-02-24 14:59 | Discharge Summary ---
Date of Service February 24, 2021 History of Present Illness Patient was sent into the ER by his outpatient psychiatrist, Dr. Mendoza at [facility], for severe depression and anxiety and inability to care for himself. He previously been in treatment with Dr. Prado for several decades and has been diagnosed with bipolar disorder. Records from his psychiatry visit yesterday indicate he presented with his [id number], had been crying most of the day, was hopeless, and did not think he would ever get better. He had not been sleeping, had no energy, was isolating, and not eating, losing 13 pounds in 3 weeks. He endorsed anxiety, and was very shaky. He had been started on sertraline and just increased the dose to 50 mg yesterday. He did not feel able to care for himself, stating he could not wait for the medication to work and was "not going to make it." His [id number] agreed to take him to the hospital for inpatient treatment. He had been seen in the ER 02/10/2021 for anxiety and was given a prescription for lorazepam 0.5 mg as needed, which he took a couple of times with good effect. At that time his paroxetine was being titrated, but after that visit he was switched to sertraline. Yesterday in the ER, EKG was normal sinus rhythm with QTC 414, labs notable for low RBC, hemoglobin, and hematocrit; BUN of 20, chloride 109, glucose 105, normal LFTs and TSH 0.887; UA and UDS negative. He was admitted voluntarily and continued on his home medications including hydroxyzine 25-50 mg 3 times daily as needed anxiety, sertraline 50 mg daily, lamotrigine 150 mg daily at noon, lithium 600 mg at noon, and quetiapine 300 mg at bedtime. On my assessment today, he states mood and anxiety have been worsening since a shoulder injury last December after he fell off a backhoe, and wasn't able to have surgery due to pandemic until Oct., with ongoing pain and need for PT. He became more anxious last month and has had with several medications trials (first bupropion which made him more anxious, then paroxetine which also made him feel worse, and started sertraline about 4 days ago). He has been on stable doses of Seroquel, lamotrigine and lithium for years. He has felt so anxious he could not eat, was "crying 24/," and could not function despite good family support. He denies wanting to hurt himself or anyone else, "I love my family and I love my life, I just want to get better." Sleep is "off and on," some nights can't sleep but others sleeps well, thinks Seroquel helps. Has been on up to 400mg of Seroquel in the past, but the dose was reduced as he "felt like a zombie." He thinks his last manic episode was in 2006 when his from cancer, and he was hospitalized at [facility], had a very bad experience. He repeatedly asked if we would get him better, and if he would be better by the time he left. He is particularly concerned about the crying and "shakes." He would like a new psychiatrist, as he feels Dr. Prado knew just what medications to give him and he is frustrated that his recent medication changes haven't been working, and is also interested in therapy. Physical Exam Psychiatric Orientation: alert and oriented x 3 Apperance: appropriately dressed and appropriately groomed Appears somewhat younger than stated age. Eye Contact: + fair eye contact Motor Behavior: + tremor "I am a little nervous today. But I am ready to go home." Speech: normal rate/rhythm/volume of speech Affect: + anxious affect Patient's affect was fairly bright and he smiled appropriately number times during the encounter . "Back to normal. I just hope I stay this way." Thought Process: goal directed thought process and linear/logical thought process Thought Content: reality based without delusions Suicidal Thoughts: denies suicidal thoughts Homicidal Thoughts: denies homicidal thoughts Hallucinations: no auditory hallucinations and no visual hallucinations Cognition: recent memory grossly intact, remote memory grossly intact, attention grossly intact and language grossly intact Estimated Intelligence: average estimated intelligence Insight: + fair insight Judgement: + fair judgement Vital Signs (Past 24 Hours) Last Vital Signs Temp 36.4 C L 02/24/21 13:39 Pulse 101 H 02/24/21 13:39 Resp 16 02/24/21 13:39 BP 115/76 02/24/21 13:39 Pulse Ox 98 02/24/21 13:39 Principal Diagnosis Bipolar 1 disorder Psychiatric Data During the course of hospitalization the patient was offered various modalities of psychiatric treatment and education. These included individual, group, recreational, family, and pharmacologic interventions. The patient reported that he had been taking the antidepressant medication Paxil for approximately 20 years, together with various mood stabilizers, but that he was not sure that Paxil was still working. He was receptive to a trial of a different medication, and he was started on sertraline (Zoloft) and the dose of this medication was titrated to 100 mg a day. The patient reported that he felt that this medication is well-tolerated. We reviewed the material risk anticipated benefits with the patient and he indicated understanding. He also said that he understands that the dose may need to be further titrated on an outpatient basis, depending upon his continued progress. The patient reported during the stay that his appetite had returned to normal, he was far less anxious, he became very active in the mill you informed a number of alliances among the patient group. He also actively participated in treatment and worked on developing his individual coping strategies. It is clear that he has a very supportive family, including but not limited to his brother and his daughter. Both will be available to him on an outpatient basis. The patient's report is that he has not had any thoughts of suicide during the current episode of depression. He tells us that he feels as if he is "back to normal" although he does note that on the day of discharge he became a little nervous because he worries that he might suffer another relapse upon his return to the community. He developed a good safety plan, and as above has the active support of his family, as well as the support of a girlfriend (although she does not live locally). The treatment team is in agreement that the patient has received maximum benefit from inpatient psychiatric hospitalization and is now sufficiently competent cognitively and sufficiently stable mentally to be safely and effectively treated on an outpatient basis. Patient is in agreement that he feels ready for discharge and is optimistic about his future. Day of Discharge Assessment On the day of discharge, the patient was found to be fully cooperative with the interview and pleasant. He was appropriately dressed and groomed, and described his mood is "a little nervous because I am being discharged," but otherwise says that he feels "back to normal." He notes that it has been "many years" since he has had a manic episode, but says that in the remote past he has had episodes during which she feels "on top of the world," has racing thoughts, and engages in impulsive behaviors, such as excess spending beyond his means. He adds, "mostly, [he is] depressed" in those times in which his mood is normal. The patient's affect is somewhat anxious but generally bright. He smiles appropriately and is fairly animated. The patient's thought processes demonstrate tight associations. There is no evidence of any delusional material in the patient's thought content. He asked a number of questions to reveal that he plans to be actively engaged in treatment on an ongoing basis. For example, he wanted to make certain that his discharge medications were sent to his pharmacy so that he will have them at home upon his return. There are no perceptual disturbances in evidence. The patient has at least fair judgment and insight. His intelligence is estimated as being average. Transition of Care Transition Of Care Record: was reviewed with the patient Advance Directives Advance Directives Information Provided: Yes Advance Directives: No Mental Health Advance Directive: No Advance Directives on File: No Living Will: No Power of Cad Engineer: No Advance Directives Reason:: Declines as Mental Health Visit. Risk Factors Assessment Male: Yes : Yes Do You Have Access To A Gun?: Yes (locked up) Health Problems: Yes Mental Health Diagnoses: Yes Substance Use Disorders: No Previous Attempt: No Previous Psychiatric Hospitalization: Yes Hopelessness: Yes Smoker: No Protective Factors Assessment Hinduism Beliefs: No : No Responsible for Young Children: No Employed: No Stable Relationships: Yes Supportive Family: Yes Tobacco Cessation at Discharge Tobacco Cessation Medication Prescribed at Discharge: Not Applicable/Non-Smoker Total Time Total Time Spent: Greater Than 30 Minutes Total Time Includes: Examination of the patient, Discharge Planning, Medication Reconciliation and Communication with other providers Discharge Data Lab Results 02/21/21 02/21/21 02/21/21 14:17 14:17 14:17 WBC 6.68 RBC 4.30 L Hgb 13.9 L Hct 40.3 L MCV 93.7 MCH 32.3 MCHC 34.5 RDW Std Deviation 43.7 RDW Coeff of Krysten 12.7 Plt Count 280 MPV 8.9 Immature Gran % (Auto) 0.3 Neut % (Auto) 66.6 Lymph % (Auto) 22.6 Travis % (Auto) 7.8 Eos % (Auto) 2.4 Baso % (Auto) 0.3 Neut # (Auto) 4.45 Lymph # (Auto) 1.51 Travis # (Auto) 0.52 Eos # (Auto) 0.16 Baso # (Auto) 0.02 Immature Gran # (Auto) 0.02 Sodium 141 Potassium 4.9 Chloride 109 H Carbon Dioxide 30 Anion Gap 2.0 L BUN 20 H Creatinine 0.93 Est Cr Clr Drug Dosing 76.0 Est GFR ( Amer) 97.4 Est GFR (Non-Af Amer) 84.1 BUN/Creatinine Ratio 22.1 H Glucose 105 H Calcium 9.9 Total Bilirubin 0.5 AST 17 ALT 53 Alkaline Phosphatase 92 Total Protein 7.6 Albumin 3.8 Globulin 3.8 Albumin/Globulin Ratio 1.0 TSH 0.887 Urine Color Urine Appearance Urine pH Ur Specific [place] Urine Protein Urine Glucose (UA) Urine Ketones Urine Blood Urine Nitrite Urine Bilirubin Urine Urobilinogen Ur Leukocyte Esterase Salicylates < 1.7 L Urine Opiates Screen Ur Methadone, Qual Acetaminophen < 2 L Urine Barbiturates Ur Phencyclidine (PCP) U Amphetamin/Meth Scrn MDMA (Ecstasy) Screen U Benzodiazepines Scrn [place] Ur Cocaine Metabolite U Marijuana (THC) Screen Ethyl Alcohol mg/dL COVID-19 Eval Order SARS-CoV-2, RNA, NAAT 02/21/21 02/21/21 02/21/21 14:17 15:30 15:30 WBC RBC Hgb Hct MCV MCH MCHC RDW Std Deviation RDW Coeff of Krysten Plt Count MPV Immature Gran % (Auto) Neut % (Auto) Lymph % (Auto) Travis % (Auto) Eos % (Auto) Baso % (Auto) Neut # (Auto) Lymph # (Auto) Travis # (Auto) Eos # (Auto) Baso # (Auto) Immature Gran # (Auto) Sodium Potassium Chloride Carbon Dioxide Anion Gap BUN Creatinine Est Cr Clr Drug Dosing Est GFR ( Amer) Est GFR (Non-Af Amer) BUN/Creatinine Ratio Glucose Calcium Total Bilirubin AST ALT Alkaline Phosphatase Total Protein Albumin Globulin Albumin/Globulin Ratio TSH Urine Color Yellow Urine Appearance Clear Urine pH 6.5 Ur Specific [place] 1.019 Urine Protein Negative Urine Glucose (UA) Negative Urine Ketones Negative Urine Blood Negative Urine Nitrite Negative Urine Bilirubin Negative Urine Urobilinogen Negative Ur Leukocyte Esterase Negative Salicylates Urine Opiates Screen Neg Ur Methadone, Qual Neg Acetaminophen Urine Barbiturates Neg Ur Phencyclidine (PCP) Neg U Amphetamin/Meth Scrn Neg MDMA (Ecstasy) Screen Neg U Benzodiazepines Scrn Neg [place] Ur Cocaine Metabolite Neg U Marijuana (THC) Screen Neg Ethyl Alcohol mg/dL < 3.0 COVID-19 Eval Order SARS-CoV-2, RNA, NAAT 02/21/21 02/21/21 02/21/21 17:40 17:40 19:58 WBC RBC Hgb Hct MCV MCH MCHC RDW Std Deviation RDW Coeff of Krysten Plt Count MPV Immature Gran % (Auto) Neut % (Auto) Lymph % (Auto) Travis % (Auto) Eos % (Auto) Baso % (Auto) Neut # (Auto) Lymph # (Auto) Travis # (Auto) Eos # (Auto) Baso # (Auto) Immature Gran # (Auto) Sodium Potassium Chloride Carbon Dioxide Anion Gap BUN Creatinine Est Cr Clr Drug Dosing Est GFR ( Amer) Est GFR (Non-Af Amer) BUN/Creatinine Ratio Glucose Calcium Total Bilirubin AST ALT Alkaline Phosphatase Total Protein Albumin Globulin Albumin/Globulin Ratio TSH Urine Color Urine Appearance Urine pH Ur Specific [place] Urine Protein Urine Glucose (UA) Urine Ketones Urine Blood Urine Nitrite Urine Bilirubin Urine Urobilinogen Ur Leukocyte Esterase Salicylates Urine Opiates Screen Ur Methadone, Qual Acetaminophen Urine Barbiturates Ur Phencyclidine (PCP) U Amphetamin/Meth Scrn MDMA (Ecstasy) Screen U Benzodiazepines Scrn [place] 0.6 Ur Cocaine Metabolite U Marijuana (THC) Screen Ethyl Alcohol mg/dL COVID-19 Eval Order Covid19 [facility] SARS-CoV-2, RNA, NAAT NEGATIVE Hospital Course (1) Anxiety: 02/22 -patient is extremely anxious, shaky and distraught. He reports poor response to hydroxyzine, but has been taking Ativan with some benefit. Will offer 1 mg 3 times daily as needed here. Also ordered propanolol 10 mg twice daily as needed for anxiety/tremor. -Continue to titrate sertraline, increasing to 100 mg daily today. -Encourage group attendance and participation, work on healthy coping skills and discharge safety plan. -Coordinate with outpatient psychiatrist, Dr. Mendoza at [facility], and refer for outpatient psychotherapy. -Family meeting. 02/23 - Continue medication changes from yesterday. Pt continues to demonstrate episodes of elevated anxiety, responding to lorazepam. Pt was encouraged to consider trial of propranolol, with option to have the medication scheduled if it is helpful for anxiety. - Continue to encourage group participation as appropriate - staff processed inappropriate boundaries between patient and several female peers, he verbalized understanding and motivation toward changed behavior. Pt was informed that continued inappropriate behavior could lead to decision for administrative discharge, and he verbalized understanding. - Will need to schedule family meeting to involve brother and [id number] - Refer for outpatient therapy 02/24 -Some renewed anxiety today in association with his planned discharge. However, the patient reports that he is feeling much better" back to normal." He notes that he is aware that lorazepam has a potential for addiction, falls, accidents, and complicated physical withdrawal. He also has been advised that it has an abuse potential. The patient notes that he has had his supply of lorazepam available to him on an outpatient basis; namely 0.5 mg that he sometimes takes in the morning if he awakens particularly anxious, and we agreed to provide him with a small supply of lorazepam at discharge. (2) Bipolar 1 disorder: 02/22 -continue lithium, lamotrigine, and quetiapine. Discussed options of increasing either lithium or quetiapine, as he has been on higher doses of both in the past and this may benefit mood, sleep, and anxiety. We will reserve this option in case he is not improving with titration of the SSRI as above. 02/23 - Continue as above 02/24 -The patient has been started on sertraline and the current dose is 100 mg daily. Material risks and anticipated benefits of sertraline were reviewed with the patient and he indicated understanding. He was also advised that it may be necessary to increase the dose of this medication on an outpatient basis and that he will be talking with his outpatient doctor about this possibility. The patient indicates that so far he has been tolerating sertraline well. -The patient also notes that he has learned new individual coping strategies that he feels will be helpful to him in the community in order to manage his mood symptoms and anxiety symptoms as they arise. Mental Health & Subst Abuse Tx Psychiatrist Name of Psychiatrist: Dr. Stephens [facility] Psychiatry Psychiatrist's Date of Appointment with Psychiatrist: 03/21/21 Time of Appointment with Psychiatrist: 10:30 a.m. Psychiatric Appointment Comment: Marlene Kiser Psychiatrist Release of Information: Obtained, Reviewed and Signed Therapist Name of Therapist: [facility] Therapist's Time of Therapist Appointment: Referral sent to [place] office - will call you early next week Therapy Appointment Comment: [address] [place] [address] Therapist Release of Information: Obtained, Reviewed and Signed Post Discharge Appointments Primary Care Physician Name Of Family Doctor: [facility] Date of Appointment with PCP: 03/02/21 Time of Appointment with PCP: 11:20 a.m. Provider Appointment Comment: [facility] Release of Information: Obtained, Reviewed and Signed Smoking Cessation Counseling Tobacco Cessation Medication Prescribed at Discharge: Not Applicable/Non-Smoker Contact Information Discharge Discharge [address]: [address] [place] [id number] Discharge Plan Discharge Items Patient Disposition: Home - Self-Care Reason For Visit: DEPRESSION Discharge Diagnosis: Bipolar Disorder, most recent episode depression Activity: Resume your previous activity Non-emergency contact: Primary Care Provider, Psychiatrist and Therapist Call non-emergency contact if: you have any medication questions and your sympt oms worsen Follow-up/Referrals: Jeremy Hickman DO [Primary Care Provider] - Diet: Regular Ambulatory Orders: Lorazepam (Ativan) (Routine) Location: None Selected Ordered By: Carlos Pedroza Attending Provider Instructions: SPECIAL CARE INSTRUCTIONS: 1. Follow through with your scheduled aftercare appointments. If unable to keep an appointment, please call to reschedule. 2. Take your medication only as prescribed. Medication should not be changed or stopped without the approval of your doctor. In the event of worsening symptoms or concerns about side effects, contact your doctor immediately. 3. Utilize new healthy coping skills, anger management skills, and stress management skills learned during your hospitalization. Journal feelings and process them with a support person. Identify stressors or situations that may result in relapse, deterioration or inappropriate behaviors and develop a plan to deal with those issues. 4. If your coping skills are ineffective and you are in crisis, contact your outpatient providers for direction. If unable to reach your providers, please call the [facility] CRISIS LINE AT , go to the [facility] walk-in center at [address], [address], [place], or go to the closest Emergency Room. 5. Avoid alcohol and un-prescribed drugs. 6. You have been provided with the Mental Health Advance Directives Pamphlet for your review. AFTERCARE APPOINTMENTS: * Please call your insurance company prior to your scheduled appointment to confirm your aftercare providers are covered. Take your insurance information to your appointments. WHO TO CALL AND WHEN: Medical Emergencies: For questions or emergencies related to your hospital stay, please contact the Inpatient Behavioral Health Unit at [phone]. A collar setter overlock is on-call 20/05 for the Behavioral Health Unit for emergencies At any time you feel your situation is an emergency, you may also call 911 immediately. Pending Studies at Discharge: No Stand-Alone Forms: My [facility] Loku, Smoking Cessation Medications and DC Order Prescriptions: New propranolol 10 mg Tablet 10 mg PO BID PRN (Reason: anxiety) Qty: 60 RF: 0 sertraline 100 mg Tablet 100 mg PO QAM Qty: 30 RF: 0 lorazepam 0.5 mg tablet 0.5 mg PO BID PRN (Reason: severe anxiety) Qty: 14 RF: 0 Continued lamotrigine [Lamictal] 150 mg Tablet 150 mg PO DAILY RF: 0 ascorbic acid (vitamin C) [Vitamin C] 1,000 mg Tablet 1,000 mg PO DAILY RF: 0 atorvastatin 20 mg Tablet 20 mg PO DAILY RF: 0 quetiapine [Seroquel] 300 mg Tablet 300 mg PO HS RF: 0 dicyclomine 20 mg Tablet 20 mg PO TID PRN (Reason: ABD PAIN) RF: 0 lithium carbonate 600 mg Capsule 600 mg PO DAILY RF: 0 pantoprazole [Protonix] 40 mg Tablet,Delayed Release (Dr/Ec) 40 mg PO BID RF: 0 lisinopril 5 mg Tablet 5 mg PO DAILY RF: 0 Foltanx RF 1 tab PO DAILY RF: 0 aspirin 81 mg Tablet,Chewable 81 mg PO DAILY RF: 0 hydroxyzine HCl 25 mg tablet 25 mg PO BID PRN (Reason: Anxiety) RF: 0 Discontinued lorazepam [Ativan] 0.5 mg tablet 0.5 mg PO Q12H PRN (Reason: anxiety) Qty: 14 RF: 0 sertraline [Zoloft] 50 mg tablet 50 mg PO DAILY RF: 0 Discharge Orders: Discharge Order (Routine); Ordered 02/24/21 Ordered By: Carlos Zhang Admission Data Admit Date/Time: 02/21/21 21:45 Attending Provider: Tanisha Mai Admit Provider: Kirt Roca Primary Care Provider: Jeremy Hickman Other Interventions: Discharge Summary Assessment (RN) Last Done: 02/24/21 13:39 PSY Interdisciplinary Discharge Planning Last Done: 02/24/21 13:38 C[place] [address] D/C day mgmt > 30 min Patient Type Established History Expanded Problem Focused Exam Expanded Problem Focused Medical Decision Making Moderate Complexity Diagnoses Anxiety F41.9 Bipolar 1 disorder F31.9 Time Spent (min) 60
== END 2021-02-24 16:00 | disposition home or self-care (01) | DRG 885 ==
LOC: ED 13:23 → 3S 21:45